=== PATIENT | female | born 1950 | race Caucasian/White ===

== ENCOUNTER → 2017-03-12 | Outpatient (CLI) | payer BC ==
--- NOTE | 2017-03-13 15:13 | MAMMOGRAPHY REPORT ---
BILATERAL DIGITAL SCREENING MAMMOGRAM WITH CAD: 03/12/2017 CLINICAL HISTORY: Routine screening. Patient has no complaints. TECHNIQUE: Bilateral CC and MLO views were obtained. Current study was also evaluated with a Compute r Aided Detection (CAD) system. COMPARISON: Comparison is made to exams dated: 02/28/2016 mammogram, 02/22/2015 mammogram, 12/26/2013 m ammogram, 10/18/2012 mammogram, 08/21/2011 mammogram, and 08/15/2010 mammogram - [facility] enter. BREAST COMPOSITION: There are scattered areas of fibroglandular density in both breasts. FINDINGS: No suspicious mass, architectural distortion or cluster of microcalcifications is seen. IMPRESSION: ACR BI-RADS CATEGORY 1: NEGATIVE There is no mammographic evidence of malignancy. A 1 year screening mammogram is recommended. The pa tient will receive written notification of the results. Approximately 10% of breast cancers are not detected with mammography. A negative mammographic report should not delay biopsy if a clinically suggestive mass is present. Laura Thomas M.D. ay/:03/12/2017 15:44:10 Corporate Consultant: Zelda Donaldson, [facility] letter sent: Normal 1/2 BI-RADS Code: ACR BI-RADS Category 1: Negative
== END | disposition home or self-care (01) ==
LOC: C.MAMM 14:42
PROVIDERS: ATTEND Nurse Practitioner Family
DX: Z12.31 Encounter for screening mammogram for malignant neoplasm of breast (principal)

== ENCOUNTER 2024-04-08 05:04 | Observation (INO) ==
--- NOTE | 2024-03-11 12:41 | PAT Medication Instructions ---
Medication Instructions Date of Service March 11, 2024 Home Medications Medication Instructions Recorded azelastine 137 mcg (0.1 %) nasal 1 - 2 spray intranasal BID PRN 07/21/20 spray nasal congestion #30 mL cetirizine 10 mg tablet (Zyrtec) 5 mg PO DAILY PRN Allergy Symptoms azelastine 137 mcg (0.1 %) nasal spray 1 - 2 spray intranasal BID PRN nasal congestion fluticasone propionate 50 mcg/actuation nasal spray,suspension 2 spray intran ok DAILY PRN allergy symptoms trazodone 100 mg tablet 100 mg PO HS PRN Sleep DO NOT take the morning of surgery cetirizine 10 mg tablet (Zyrtec) 5 mg PO DAILY PRN Allergy Symptoms Take morning of surgery With a small sip of water, OTHERWISE NOTHING TO EAT OR DRINK AFTER MIDNIGHT: azelastine 137 mcg (0.1 %) nasal spray 1 - 2 spray intranasal BID PRN nasal congestion (if needed) fluticasone propionate 50 mcg/actuation nasal spray,suspension 2 spray intr anasal DAILY PRN allergy symptoms (if needed) Take evening before surgery cetirizine 10 mg tablet (Zyrtec) 5 mg PO DAILY PRN Allergy Symptoms (if needed) azelastine 137 mcg (0.1 %) nasal spray 1 - 2 spray intranasal BID PRN nasal congestion (if needed) fluticasone propionate 50 mcg/actuation nasal spray,suspension 2 spray intranasal DAILY PRN allergy symptoms (if needed) trazodone 100 mg tablet 100 mg PO HS PRN Sleep (if needed) Other Notes If you have any questions please call us at [phone] or [phone] or [phone] or [phone]
--- NOTE | 2024-03-12 15:46 | Anesthesiology Consultation ---
Date of Service March 12, 2024 Assessment & Plan (1) Encounter for pre-operative examination: - Infectious disease screening: Per assessment on 03/12/24: No known recent infectious disease contacts or current infectious disease symptoms. - Outpatient joint assessment: Pt currently scheduled for inpatient pathway. If surgeon requests review for outpatient joint pathway, patient is acceptable candidate for outpatient joint program from anesthesia standpoint pending surgeon's office assessment that patient is motivated, has good support and completes Same Day Joint Program preop requirements. - Patient acceptable risk for surgery pending surgeon-ordered PCP preop evaluation ([facility]/Dr. Newman, appt 03/28). Chart Review Chart Review: Patient seen in Pre Admission Testing Teaching & Discussion Pre-Anesthesia Teaching/Discussion Notes: Instructed NPO after midnight before surgery,except medications with 15 cc of water. Medication instructions provided according to the PAT guidelines. History Surgery Operation Date: 04/08/24 07:00 Proposed Procedures p Left Total Knee Arthroplasty - Hesham Vega MD Height/Weight Height: 5 ft 1 in Weight: 72.8 kg Allergies Allergy/AdvReac Type Severity Reaction Status Date / Time moxifloxacin [From Avelox] Allergy Severe Anaphylaxis Verified 03/11/24 11:35 telithromycin [From Ketek] Allergy Severe Rash, Verified 03/12/24 12:06 diarrhea Medications Home Medications Medication Instructions Recorded Confirmed Last Taken cetirizine 10 mg tablet (Zyrtec) 5 mg PO DAILY PRN Allergy Symptoms 03/05/20 03/11/24 Unknown azelastine 137 mcg (0.1 %) nasal 1 - 2 spray intranasal BID PRN 07/21/20 03/11/24 Unknown spray nasal congestion #30 mL fluticasone propionate 50 2 spray intranasal DAILY PRN 07/21/20 03/11/24 Unknown mcg/actuation nasal allergy symptoms spray,suspension trazodone 100 mg tablet 100 mg PO HS PRN Sleep 03/11/24 03/11/24 Unknown Past Medical History Medical History Osteoarthritis Seasonal allergies Exercise / Class Metabolic Activity II 4-5 Yardwork/Stairs/Walk up hill Past Family History Family History Mother COPD (chronic obstructive pulmonary disease) Father Heart disease Hearing loss Hypertension Grandmother (Maternal) Diabetes Denies family history of No family history of bleeding disorder Cancer Stroke Asthma Past Surgical History Surgical History History of blepharoplasty Original b/l upper bleph ~15 years ago Right upper bleph and Right brow lift performed secondarily 2019 History of colonoscopy History of Mohs micrographic surgery for skin cancer precancerous lesion removed History of tonsillectomy History of total hysterectomy Hx of bilateral cataract extraction 2021 Past Anesthesia History No Hx of Anesthesia Complications and No Family Hx of Anesthesia Complications History of PONV No Hx of PONV and No Hx of Motion Sickness Social History Smoking Status: Former smoker tobacco type: cigarettes Do You Dip or Chew Tobacco: No Smoking End Date: 25 years ago Hx Alcohol Use: Yes Alcohol type: beer alcohol intake frequency: holidays/special occasions only Hx Substance Use: No substance use type: does not use Review of Systems Patient denies chest pain, shortness of breath, dyspnea on exertion, fever, chills, cough, wheezing, palpitations. Physical Exam Vital Signs BP 154/71 P 66 TEMP 98.3 SP02 98%RA RESP 16 Physical Full cervical extension range of motion. Full TMJ range of motion. TMD 3 finger breaths Mallampati Score I Dentition: intact, + crowns Lungs: clear throughout to auscultation Cardiac: regular rate and rhythm, no murmurs noted Spine: normal Carotid arteries: negative bruit Extremities: no LE edema Lab Results Anesthesia Preop Results Results Anesthesia Widget: WBC 7.92 K/ul (4.8-10.8) 03/12/24 Hgb 12.5 g/dl (12.0-16.0) 03/12/24 Hct 37.6 % (37.0-47.0) 03/12/24 Plt 257 K/uL (130-400) 03/12/24 Na 136 mmol/L (136-145) 03/12/24 K 4.3 mmol/L (3.5-5.1) 03/12/24 Cl 102 mmol/L (98-107) 03/12/24 CO2 26 mmol/L (21-32) 03/12/24 BUN 22 mg/dl (6-23) 03/12/24 Creat 1.01 mg/dl (0.6-1.2) 03/12/24 Glucose Level 92 mg/dl (70-99(Fasting)) 03/12/24 PT 10.5 Seconds (9.0-12.0) 03/12/24 PTT 25 Seconds (21-31) 03/12/24 INR 1.0 (0.9-1.1) 03/12/24 Blood Type A Positive 03/12/24 Antibody Screen NEGATIVE 03/12/24 Testing Electrocardiogram Date: 03/12/24 Findings: + NSR @ (65) Chest X-Ray Date: 03/12/24 FINDINGS: The lungs are clear. Cardiac silhouette is normal in size. No pleural effusions. No pneumothorax. IMPRESSION: No acute process. Stress Test Date: 05/12/20 Type: exercise Negative stress echo/ecg for ischemia at 90% MPHR. Above average exercise tolerance for age and gender. 7 METS. Rest Echo: EF 60-65%. No RWMA. Mild cLVH.
[2024-04-08] MEDS: LR 500ML BOLUS, THEN 15ML/HR IV SCH (06:06)
[2024-04-08] MEDS: oxyCODONE HCL 10 MG TABCR (OxyCONTIN) PO SCH (06:07)
[2024-04-08] MEDS: GABAPENTIN 300 MG CAP PO SCH (06:07)
[2024-04-08] MEDS: dexAMETHasone**PF** 10 MG/ML VIAL IV SCH (06:07)
[2024-04-08] MEDS: CeleBREX 200 MG CAP PO SCH (06:07)
[2024-04-08] MEDS: METOCLOPRAMIDE HCL 10 MG TABLET PO SCH (06:07)
[2024-04-08] MEDS: LR 60ML/HR IV SCH (06:07)
[2024-04-08] MEDS: traMADol HCL 50 MG TABLET PO SCH (06:07)
[2024-04-08] MEDS: FAMOTIDINE 20 MG TAB PO SCH (06:07)
[2024-04-08] MEDS: ACETAMINOPHEN 500 MG TAB PO SCH ×2 (06:07→14:05)
[2024-04-08] MEDS ORDERED: BUPIVACAINE 0.25% PF 30 ML VIAL ONE (06:20)
[2024-04-08] MEDS ORDERED: BUPIVACAINE 0.5 % 5 MG/1 ML PF 10ML VIAL ONE (06:20)
[2024-04-08] MEDS ORDERED: PROMETHAZINE HCL 6.25 MG in SODIUM CHLORIDE 0.9% 50 ML IV PRN (06:35)
[2024-04-08] MEDS ORDERED: ATROPINE SULFATE 0.1 MG/ML 10ML SYR IV PRN (06:35)
[2024-04-08] MEDS ORDERED: ONDANSETRON INJ 2 MG/ML 2 ML VIAL IV PRN ×2 (06:35→11:28)
[2024-04-08] MEDS ORDERED: MIDAZOLAM HCL 1 MG/ML 2ML VIAL ONE (06:35)
[2024-04-08] MEDS ORDERED: ePHEDrine sulfate 50 MG/ML AMP IV PRN (06:35)
--- NOTE | 2024-04-08 06:38 | History & Physical Bridge Note ---
Date of Service April 08, 2024 History & Physical Bridge Note I have examined the patient, reviewed the History & Physical and in the interval since the performance of the History & Physical I have noted the following changes of clinical significance: no changes noted
[2024-04-08] MEDS: TRANEXAMIC ACID 1,000 MG **IV Pre-op IV SCH (06:44)
[2024-04-08] MEDS: ceFAZolin 2000MG 2,000 MG/15 ML SYR IV SCH ×2 (07:06→17:45)
[2024-04-08] MEDS ORDERED: PROPOFOL IV EMULSION 10 MG/ML 20 ML VIAL IV ONE ×4 (07:18→09:47)
[2024-04-08] MEDS ORDERED: LIDOCAINE 2% 2 ML VIAL/AMP(20MG/ML) INFIL ONE (07:18)
[2024-04-08] MEDS ORDERED: ONDANSETRON INJ 2 MG/ML 2 ML VIAL ONE (07:18)
[2024-04-08] MEDS: ORTHO JOINT ANESTHETIC ONE (07:56)
[2024-04-08] MEDS ORDERED: KETAMINE HCL 10MG/ML SYR ONE (08:30)
[2024-04-08] MEDS: ROPIV 0.5% 246mg, Ketorolac 30mg, EPINEPHrine 0.5mg in NSS INFIL SCH (09:45)
--- NOTE | 2024-04-08 10:29 | Operative Report ---
Post Operative Report Pre & Post Diagnosis Operation Date: 04/08/24 07:00 <No data on this case meets the specified criteria> Left knee osteoarthritis, predominantly patellofemoral compartment I identified the patient and participated in the time-out.: Yes Procedure Operation Date: 04/08/24 07:00 <No data on this case meets the specified criteria> Left total knee arthroplasty, cemented Surgeon Hesham Vega MD Gear Shaper Set Up Operator Dayna Kelly, no resident or fellow available Estimated Blood Loss 5 Findings Consistent with Post-Op Diagnosis Specimens Resected bone and soft tissue of the left knee Anesthesia Type MAC Spinal Regional Complications none Disposition Accompanied Patient To Recovery: No Disposition: Recovery Room Indications Patient is a 74-year-old female with a long history of left knee pain. She has predominantly severe patellofemoral arthritis with less tibiofemoral disease. Treatment options risks benefits discussed. She elected to proceed with operative intervention after the failure of conservative management. Description of Procedure Informed consent. Patient identified. She identified the procedure site as the left knee. I marked with my initials. A preoperative surgical timeout was performed. A preop dose of IV antibiotics was given. TXA given. She was positioned supine on the operating room table. The anesthetic was administered. A padded bump under the left calf. A tourniquet on the left thigh. The leg was prepped and draped in usual sterile fashion. DVT prophylaxis intraoperatively with foot pumps. Postop early mobility Eliquis and mechanical devices. The exam under anesthesia revealed a hypermobile left patella with a small knee effusion. Range of motion was 0 to 135 degrees with no collateral laxity at 0. There was trace LCL laxity at 20 degrees knee flexion PCL ACL intact. MCL intact. Limb exsanguinated with the Esmarch. Tourniquet inflated to 250 mmHg. A midline longitudinal incision was made followed by medial parapatellar arth rotomy. Soft tissue on the anterior aspect the distal femur was resected. The retropatellar fat pad was resected. A minimal medial release was performed enough to allow subluxation of the knee. The patella was easily everted and the knee flexed. The cruciate ligaments were intact and they were resected. The medial meniscus was diminutive. The lateral meniscus was intact. There was marginal spurring on the femur and tibia most notably in the patellofemoral compartment. There were large peripatellar osteophytes which were debrided. There was eburnation of the lateral facet of the patella as well as the lateral femoral condyle and the patellar articulation. Otherwise the tibiofemoral cartilage demonstrated some softening but no high-grade chondrosis. The menisci were resected and the tibia was exposed. The tibia was subluxated. A ship pilot hole was drilled into the proximal tibia just in front of and between the tibial spines. Intramedullary alignment ruel inserted. 3 degree cutting block was aligned to the tibial tubercle and pinned in the place. Set to resect 10 mm off of the lateral side corresponding to 8 mm medially. The extra medullary alignment ruel was applied with the knee in full extension which showed that the slope was appropriate and the alignment followed the shaft of the tibia intersected the second ray and bisected the ankle joint. This cut was made and sized to a 3. A ship pilot hole was drilled into the distal femur followed by the insertion of the distal femoral cutting guide which was set at 6 degrees left knee valgus 9 mm thick cut based upon the absence of flexion contracture. This cut was made and the extension gap was sized to a slightly asymmetric 5. Slightly tighter laterally. The epicondylar axis was marked out in the distal femoral sizing guide was applied. 3 degrees left external rotation. Sized to a 4. The pins were drilled into place which matched the epicondylar axis. The block was hung and the collateral ligaments were protected. The andry wing showed no notching. The anterior posterior and chamfer cuts were made. The flexion gap was more along the lines of a 8 or 10. I could get an up to an 8 block in extension. The lateral side was slightly tighter. I did an inverted cruciform release. I incised the lateral capsule/IT band from the LCL out to the patellar tendon and then divided this from the cut tibial surface to the cut femoral surface. This helped improve lateral tightness and extension. However the flexion gap remained 10 and the extension gap and 8. I therefore went ahead and reapply the distal femoral cutting block and resected to more of distal femur followed by the application of the 4-in-1 cutting guide and resected the chamfers. Collateral ligaments protected. This resulted in symmetric 10 mm flexion and extension gaps. The box cutting guide was applied lateralized pinned in place and the box cut was made. The trial femur was applied and fit well. The lug holes were drilled. The tibia was aligned with the tubercle. Size 3. Lateralized is much as possible. Pinned into place and the tibia was prepared with the reamer and keel punch. Trialing was then performed with the 8 which gave full extension. There was slight mid flexion laxity. The patella tracked well. Attention was then turned to the patella. There was significant peripatellar synovitis which was debrided. There were large lateral patellar osteophytes which were debrided. The lateral 40% of the patella was worn in a concavity. There was some cartilage intact medially. The margins of the patella were defined. I measured the patella to be 17 mm in thickness. The medial part was probably closer to 8-10. I applied the cutting guide and set it to preserve 14 mm of bone. I ensured that the guide was aligned properly and made a cut across the patella. This then measured about 13 mm of residual patellar thickness. I then went ahead and did a recut to smooth things out and the residual patellar thickness on the medial cut surface was about 12-1/2. Looking at the patella there was cut bone from 10:00 to 6:00. The remainder was eburnated concavity. I applied the patellar paddle which sized to a 32. It was aligned to the knee with the patella and its [place] position and slight flexion. It was lateralized is much as possible and distal lysed as well. There were 2 logs into the good medial bone and 1 into the concavity. This was carefully held in place and the lug holes were drilled. The trial patella was applied and the patella tracking was fine with no hands technique. The margins of the patella were marked out. The back of the knee was inspected for loose bodies and ossicles of which there were none. No spurs. There was a large 1-1/2 cm loose body in the suprapate llar pouch which was removed. The tibial canal was plugged. Ortho joint mix was injected in the back the knee. The bony surfaces of the knee were meticulously prepared with pulsatile lavage and dried. Soft tissues were kept moist throughout the surgical procedure. 2 bags of Simplex P cement were mixed vacuum style. Once of doughy consistency smears were placed on the posterior femoral condyles and the components were then cemented into place femur tibia and patella with knee held in full extension with a trial [address]. When cementing in the patella I used cement to fill in the after mentioned defect and ensured that the patella remained into contact with the cut medial surface and did not tilt into the defect. I over applied cement into the lateral defect to ensure that it was full. Prior to this I had excoriated this area with the curette. I did not drill any holes to create any further stress risers. The patellar trial button fit flush on the medial surface and the lug was engaged within the patella small hole lateral. The knee was held like this until the cemented hardened the tourniquet was let down after 130 minutes of inflation. Meticulous hemostasis was performed. The remainder the Ortho joint mix was injected and copious lavage was done. Composite patellar thickness was then 21 mm. The patella tracked fine with no hands technique. The knee was fully extended but there was mid flexion laxity of 1++ trace amount of laxity at 90 degrees. I trialed with a 10 and there might have been a minor less than 3 degree loss of terminal extension but the mid position laxity was resolved and there was no laxity at 90 degrees. The patella again tracked fine. I did not need to perform a lateral release. The extensor mechanism was closed with interrupted #2 FiberWire above the equator the patella. I inserted the final posterior stabilized #4 polyethylene insert. The back the knee was inspected for cement and bleeding and was addressed as encountered. The extensor mechanism below the equator the patella was closed with running and interrupted #1 Vicryl. The skin was closed in layers with 0 and 2-0 Vicryl followed by trav. The leg was cleaned with wet and dry sponges and a soft sterile dressing was applied Xeroform 4 x 4's ABD soft wrap and a full-length Krishna. Knee immobilizer. Patient was then awakened from anesthesia without difficulty and taken to the recovery room in stable condition. The resected bone and soft tissue from for specimen. Counts are correct and blood loss is estimated to be 5 cc. At the conclusion the operation I spoke to patient's son informed of my findings. [place] assisted flexion with extensor mechanism closed was approximately 120 to 125 degrees. Components inserted were the J&J attune size 4 left posterior stabilized femur a size 3 rotating platform tray with a size 4 polyethylene insert which was 10 mm thick and posterior stabilized rotating platform. A 32 mm 3 peg medial offset patella. She can rehabilitate according to the standard total knee protocol. Blood thinner will begin the morning after surgery. I attest to the content of the Intraoperative Record and any orders documented therein. Any exceptions are noted below.
--- NOTE | 2024-04-08 10:33 | Operative Report ---
Post Operative Report Pre & Post Diagnosis Operation Date: 04/08/24 07:00 Pre-Op Diagnosis: Left Knee Degenerative Joint Disease Post-Op Diagnosis: Left Knee Degenerative Joint Disease I identified the patient and participated in the time-out.: Yes Procedure Operation Date: 04/08/24 07:00 Actual Procedures p Left Total Knee Arthroplasty(Left) - Hesham Vega MD Surgeon Hesham Vega M.D. Ferris Wheel Attendant Dayna Kelly, no resident or fellow available Estimated Blood Loss 5 Findings Consistent with Post-Op Diagnosis Specimens Bone and soft tissue Anesthesia Type MAC Spinal Regional Description of Procedure Patient was taken to the operating room placed under spinal anesthesia. Given peripheral nerve block preoperatively. She was given 2 g of IV Ancef preoperatively and 1 g of IV TXA preoperatively. Time out was performed. She was prepped and draped in routine sterile fashion. Is present during the entire case. Please see Dr. Vega's operative report for further details regarding today's procedure. Patient was awakened and transferred to the recovery room in stable condition. I attest to the content of the Intraoperative Record and any orders documented therein. Any exceptions are noted below.
[2024-04-08] MEDS: fentaNYL citrate PF 100 MCG/2 ML VIAL IV PRN (11:05)
--- NOTE | 2024-04-08 11:20 | XRay Report ---
TWO VIEWS LEFT KNEE CLINICAL HISTORY: Postoperative examination. FINDINGS: AP and crosstable lateral portable views of the left knee are obtained. A left knee arthrop lasty is in near anatomic alignment. There has been undersurface remodeling of the patella. No acute fracture is seen. There are expected postoperative changes around the knee including skin clips, soft tissue edema, and subcutaneous gas. IMPRESSION: Expected postoperative changes status post left knee arthroplasty. No acute fracture is s een. ACT 112: Negative or not required by law. Electronically signed by: Mina Holden M.D. 04/08/2024 11:17 AM
[2024-04-08] MEDS ORDERED: MAGNESIUM HYDROXIDE SUSP 30 ML UDC PO PRN (11:28)
[2024-04-08] MEDS ORDERED: METOCLOPRAMIDE HCL INJ 5 MG/ML 2 ML VIAL IV PRN (11:28)
[2024-04-08] MEDS ORDERED: CETIRIZINE HCL 10 MG TABLET PO PRN (11:28)
[2024-04-08] MEDS ORDERED: HYDROmorphone INJ 1 MG/ML SYRINGE IV PRN (11:28)
[2024-04-08] MEDS ORDERED: HYDROmorphone INJ 0.5 MG/0.5 ML SYR IV PRN (11:28)
[2024-04-08] MEDS ORDERED: diphenhydrAMINE 50 MG/ML VIAL IV PRN (11:28)
[2024-04-08] MEDS ORDERED: FLUTICASONE PROPIONATE NA SPR 16 GM BTL NAE PRN (11:28)
[2024-04-08] MEDS ORDERED: NALOXONE HCL 0.4 MG/1 ML VIAL/CARP IV PRN (11:28)
[2024-04-08] MEDS ORDERED: AZELASTINE HCL 0.1% NASAL 200 SPRAYS/27,400 MCG BTL NAE PRN (11:28)
[2024-04-08] MEDS ORDERED: bisacodyL 10 MG SUPP PR PRN (11:28)
[2024-04-08] MEDS ORDERED: traMADol HCL 50 MG TABLET PO PRN (11:28)
[2024-04-08] MEDS: fentaNYL citrate PF 100 MCG/2 ML VIAL IV ONE (11:48)
[2024-04-08] MEDS: oxyCODONE HCL IR 5 MG TAB (IMMEDIATE RELEASE) PO PRN (12:14)
[2024-04-08] MEDS: KETOROLAC TROMETHAMINE 15 MG/ML VIAL IV SCH (14:21)
[2024-04-08] MEDS: SODIUM CHLORIDE 0.9% 1,000 ML IV SCH (15:10)
--- NOTE | 2024-04-08 15:36 | Orthopedic Progress Note ---
Date of Service April 08, 2024 Assessment & Plan (1) Left knee DJD: Plan: POD 0 - left Total knee arthroplasty with Dr. Vega Regular diet ordered May be out of bed with knee immobilizer and assistance of walker with assistance. May weight bear as tolerated left leg. Ice to left knee Elevate left leg on 2-3 pillows when in bed PT/OT to start tomorrow Eliquis to start tomorrow morning. Will be on for 2-4 weeks post op, Teds and AV impulse boots while inpatient Case management for disposition. Post op x-rays show total knee arthroplasty without complications. AM Labs ordered. Home medications continued Dr. Vega present for today's visit. Will re-eval in AM. Plan for home with home health when orthopedically stable. Admission and Anticipated Discharge Date Admission Date: April 08, 2024 Subjective Patient sitting up in bed, resting, feeling well. Has not had anything to eat since surgery. Has had ice on the left knee. No nausea, vomiting. No lightheadedness or dizziness. Has not been out of bed yet. Physical Exam Musculoskeletal: Exam of left lower extremity: Postoperative dressings are clean, dry and intact. Left leg was elevated on 2 pillows. She has normal sensation throughout her left foot. Distal pulses are 1+. Strength is 5/5 with ankle and toe range of motion. Results & Data Vital Signs (Past 12 Hours) Vital Signs Temp Pulse Pulse Resp BP Pulse Ox O2 Del Method 04/08/24 15:00 36.7 C 80 17 147/88 H 96 Room Air 04/08/24 13:45 76 12 133/72 95 Room Air 04/08/24 13:15 85 21 168/75 H 98 Room Air 04/08/24 12:45 80 18 100/60 97 Room Air 04/08/24 12:15 77 21 146/83 H 93 Room Air 04/08/24 11:45 77 16 174/97 H 94 Room Air 04/08/24 11:30 75 13 146/81 H 94 Room Air 04/08/24 11:15 37 C 75 16 165/69 H 93 Room Air 04/08/24 11:00 76 15 139/90 98 Room Air 04/08/24 10:50 72 19 165/80 H 93 Room Air 04/08/24 10:40 36.7 C 75 18 181/88 H 95 Room Air 04/08/24 10:30 36.7 C 77 15 156/96 H 95 Room Air 04/08/24 05:40 36.9 C 74 20 167/88 H 96 Room Air Diagnostic Findings TWO VIEWS LEFT KNEE CLINICAL HISTORY: Postoperative examination. FINDINGS: AP and crosstable lateral portable views of the left knee are obtained. A left knee arthroplasty is in near anatomic alignment. There has been undersurface remodeling of the patella. No acute fracture is seen. There are expected postoperative changes around the knee including skin clips, soft tissue edema, and subcutaneous gas. IMPRESSION: Expected postoperative changes status post left knee arthroplasty. No acute fracture is seen.
--- NOTE | 2024-04-08 15:43 | Anesthesiology Progress Note ---
Date of Service April 08, 2024 Anesthesia Post Procedure Vital Signs Vital Signs: Temp Pulse Pulse Resp BP Pulse Ox O2 Del Method 04/08/24 15:30 36.7 C 77 17 131/74 96 Nasal Cannula 04/08/24 15:00 36.7 C 80 17 147/88 H 96 Room Air 04/08/24 13:45 76 12 133/72 95 Room Air 04/08/24 13:15 85 21 168/75 H 98 Room Air 04/08/24 12:45 80 18 100/60 97 Room Air 04/08/24 12:15 77 21 146/83 H 93 Room Air 04/08/24 11:45 77 16 174/97 H 94 Room Air 04/08/24 11:30 75 13 146/81 H 94 Room Air 04/08/24 11:15 37 C 75 16 165/69 H 93 Room Air 04/08/24 11:00 76 15 139/90 98 Room Air 04/08/24 10:50 72 19 165/80 H 93 Room Air 04/08/24 10:40 36.7 C 75 18 181/88 H 95 Room Air 04/08/24 10:30 36.7 C 77 15 156/96 H 95 Room Air 04/08/24 05:40 36.9 C 74 20 167/88 H 96 Room Air O2 Flow Rate 04/08/24 15:30 2 04/08/24 15:00 04/08/24 13:45 04/08/24 13:15 04/08/24 12:45 04/08/24 12:15 04/08/24 11:45 04/08/24 11:30 04/08/24 11:15 04/08/24 11:00 04/08/24 10:50 04/08/24 10:40 04/08/24 10:30 04/08/24 05:40 Pain Intensity Left Knee: Pain Intensity: 5 Transfer of Care Handoff Completed per policy Notes Mental Status: alert / awake / arousable and participated in evaluation Patient Amnestic to Procedure: Yes Nausea / Vomiting: adequately controlled Pain: adequately controlled Airway Patency, RR, SpO2: stable & adequate BP & HR: stable & adequate Hydration State: stable & adequate Neuraxial Anesthesia: was administered and sensory block is resolving Anesthetic Complications: no major complications apparent and Pt Satisfied with anesthetic care
[2024-04-08] MEDS: TRANEXAMIC ACID / 0.7% NACL 1,000 MG/100 ML BAG IV SCH (17:31)
[2024-04-08] MEDS: SENNA 8.6 MG TAB PO SCH (20:10)
[2024-04-08] MEDS: DOCUSATE SODIUM 100 MG CAP PO SCH (20:10)
[2024-04-08] MEDS: hydrALAZINE HCL 20 MG/ML VIAL IV PRN (20:11)
[2024-04-08] MEDS: traZODone HCL 100 MG TAB PO PRN (23:05)
[2024-04-09 06:28] LABS: Hematocrit (blood only) 30.3 % (37.0-47.0); Hemoglobin 9.9 g/dl (12.0-16.0); Mean Corpuscular Hemoglobin 30.6 pg (25.0-34.0); Mean Corpuscular Hgb Conc 32.7 g/dL (32.0-36.0); Mean Corpuscular Volume 93.5 fL (80.0-100.0); Mean Platelet Volume 10.1 fL (9.4-12.4); Platelet Count 208 K/uL (130-400); RDW Coefficient of Variation 12.5 % (11.5-14.5); RDW Standard Deviation 42.7 fL (36.4-46.3); Red Blood Count 3.24 M/uL (4.20-5.40)
[2024-04-09 07:13] LABS: BUN Creatinine Ratio 14.1 (10-20); Calcium 8.6 mg/dl (8.6-10.3); Creatinine Clr Calc Pharmacy 50.4 ml/min; Potassium 3.8 mmol/L (3.5-5.1)
[2024-04-09 07:40] VITALS: RESP 16
[2024-04-09] MEDS: dexAMETHasone 4 MG TAB PO SCH (07:56)
[2024-04-09] MEDS: APIXABAN 2.5 MG TAB PO SCH (07:56)
[2024-04-09] MEDS: MULTIVITAMIN TAB PO SCH (07:56)
--- NOTE | 2024-04-09 09:59 | Orthopedic Progress Note ---
Date of Service April 09, 2024 Assessment & Plan (1) Left knee DJD: Plan: POD 1 - Left Total knee arthroplasty with Dr. Vega Tolerating regular diet May be out of bed with assistance of walker.. May weight bear as tolerated left leg. May discontinue knee immobilizer. Ice to left knee Elevate left leg on 2-3 pillows when in bed Did well in PT this morning. Has not been seen by OT yet this AM. Eliquis started this morning. Will be on for 2-4 weeks post op, Teds and AV impulse boots while inpatient Case management for disposition. Plan for home with home health. Pain well controlled on oral pain medication. Dr. Vega present for today's visit. Plan for home with home health later this morning if safe in OT. Discharge instructions were reviewed. All questions were answered. Follow-up with Dr. Vega as scheduled as an outpatient. (2) Acute blood loss anemia: Plan: POD 1 - S/P left TKA with Dr. Vega Expected post operatively Will monitor Asymptomatic Admission and Anticipated Discharge Date Admission Date: April 08, 2024 Subjective Chante is doing well this morning. Tolerating diet. Denies any headaches, lightheadedness or dizziness. Has been out of bed with physical therapy. She states that she did not have pain this morning but does note some pain after some activities with physical therapy. Denies any chest pain or shortness of breath. Physical Exam Musculoskeletal: Exam of her left lower extremity: Her postoperative dressings are clean, dry and intact. She has full ankle range of motion and normal strength of the left foot. Dorsalis pedis and posterior tibial pulses are 1+. Normal sensation throughout the left foot and ankle. Minimal distal edema. Ambulates with the assistance of a walker and knee immobilizer on her left leg. Results & Data Vital Signs (Past 12 Hours) Vital Signs Temp Pulse Resp BP BP Pulse Ox O2 Del Method 04/09/24 07:39 36.7 C 74 16 146/74 H 93 Room Air 04/09/24 03:22 36.8 C 80 20 127/65 96 Room Air 04/09/24 03:00 36.8 C 80 20 127/65 96 Room Air 04/08/24 22:33 37.0 C 93 H 18 156/71 H 95 Room Air Laboratory Results 04/09/24 Range/Units 05:47 WBC 13.50 H (4.8-10.8) K/ul RBC 3.24 L (4.20-5.40) M/uL Hgb 9.9 L (12.0-16.0) g/dl Hct 30.3 L (37.0-47.0) % MCV 93.5 (80.0-100.0) fL MCH 30.6 (25.0-34.0) pg MCHC 32.7 (32.0-36.0) g/dL RDW Std Deviation 42.7 (36.4-46.3) fL RDW Coeff of Caitlin 12.5 (11.5-14.5) % Plt Count 208 (130-400) K/uL MPV 10.1 (9.4-12.4) fL Sodium 137 (136-145) mmol/L Potassium 3.8 (3.5-5.1) mmol/L Chloride 107 (98-107) mmol/L Carbon Dioxide 25 (21-32) mmol/L Anion Gap 5 (3-11) BUN 13 (6-23) mg/dl Creatinine 0.92 (0.6-1.2) mg/dl Est Cr Clr Drug Dosing 50.4 ml/min eGFR 66.16 BUN/Creatinine Ratio 14.1 (10-20) Glucose 98 (70-99(Fasting)) mg/dl Calcium 8.6 (8.6-10.3) mg/dl
--- NOTE | 2024-04-09 10:07 | Discharge Summary ---
Date of Service April 09, 2024 Discharge Data Procedures Performed Operation Date: 04/08/24 07:00 Actual Procedures p Left Total Knee Arthroplasty(Left) - Hesham Vega MD Hospital Course (1) Left knee DJD: Patient was kept in observation at [facility] after undergoing an elective left total knee arthroplasty. Her surgery was performed with spinal anesthesia and a peripheral nerve block. She was given 2 g of IV Ancef for surgical prophylaxis preoperatively which was continued for 24 hours after surgery. She was given 1 g of IV TXA preoperatively for bleeding prophylaxis which was repeated approximately 6 hours after that initial dose. She tolerated the procedure well without any intraoperative complications. In the recovery room she had an x-ray of her left hand which showed a stable left knee prosthesis without any evidence of complications or fracture. She was allowed out of bed, weight-bear as tolerated with the assistance of a walker. She was instructed to use a knee immobilizer when out of bed for the first 24 to 48 hours after surgery. At home medications were continued. A regular diet was provided. She was provided Tylenol, oxycodone, tramadol, IV Dilaudid for postoperative pain control. Eliquis 2.5 mg started on postoperative day 1 for DVT prophylaxis. She has effectively had JAVAD stockings and AV impulse boots during her inpatient stay. On the evening of surgery she had some elevated blood pressure and was given 1 dose of hydralazine 5 g IV. She was seen and evaluated on postoperative day 1 by physical therapy and Occupational Therapy. She was deemed safe out of bed. She did well with a walker. Her knee immobilizer was discontinued on postoperative day she was seen by case management for disposition needs. She was discharged to her home in stable condition 1. On April 09, 2024 with home health. Discharge instructions were reviewed. All questions were answered. She will follow-up as scheduled as an outpatient. (2) Acute blood loss anemia: She did develop acute blood loss anemia status post a left total knee arthroplasty with Dr. Vega on 04/08/2024. She remained asymptomatic during her inpatient stay. No transfusions were necessary.
[2024-04-09 11:04] VITALS: BP 157/85; PULSE 69; TEMP 98.2; O2SAT 92
== END 2024-04-09 11:47 | disposition home health service (06) ==
LOC: PACUINP 05:04 → ASU 05:04 → 3W 14:51
DX: Z79.899 Other long term (current) drug therapy; Z88.8 Allergy status to other drugs, medicaments and biological substances; M17.12 Unilateral primary osteoarthritis, left knee; M19.90 Unspecified osteoarthritis, unspecified site; Z87.891 Personal history of nicotine dependence